=== PATIENT | male | born 1960 | race Caucasian/White ===

== ENCOUNTER → 2017-10-26 07:39 | Outpatient (CLI) | payer OTHER, SELFPAY | PROVIDERS: Family Provider Family Medicine; PCP Family Medicine; Visit Provider Surgery Vascular Surgery | DX: I70.219 Atherosclerosis of native arteries of extremities with intermittent claudication, unspecified extremity (principal); E78.00 Pure hypercholesterolemia, unspecified; Z87.891 Personal history of nicotine dependence | CPT/HCPCS: 93978 ==

== ENCOUNTER → 2019-02-11 07:48 | Outpatient (CLI) | payer OTHER, SELFPAY ==
[2018-07-25 13:20] VITALS: BMI 27.0
--- NOTE | 2019-02-11 07:50 | AAVD_ITS ---
Reason For Study: Aortic atherosclerosis Aorta Measurements Aorta Doppler Measurements Proximal aorta measures1.49 x 1.51cm. in cross- Peak systolic flow velocities within the proximal sectional axis. aorta measure 77.6 cm/sec. Proximal aorta measures1.49cm. in longitudinal Peak systolic flow velocities within the mid aorta axis. measure 66.6 cm/sec. Mid aorta measures1.49 x 1.53cm. in cross- Peak systolic flow velocities within the distal sectional axis. aorta measure 81.8 cm/sec. Mid aorta measures1.50cm. in longitudinal axis. Distal aorta measures1.28 x 1.26cm. in cross- sectional axis. Distal aorta measures1.26cm. in longitudinal axis. Left Iliac Artery Left iliac artery measures 0.85 x 0.85 cm. in the cross-sectional axis. Left iliac artery measures 0.86 cm. in the longitudinal axis. Peak systolic velocity in the left iliac artery measures 112.5 cm/sec. Right Iliac Artery Right iliac artery measures 0.62 x 0.62 cm. in the cross-sectional axis. Right iliac artery measures 0.64 cm. in the longitudinal axis. Peak systolic velocity in the right iliac artery measures 186.3 cm/sec. Procedure Aorta IVC Iliac vasculature or bypass grafts [id number]. Exam performed in department. 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 Ordering Physician: Calvin Burch Referring Physician: Jan Whitt M.D. Performed By: Mabel Sharma RVT
--- NOTE | 2019-02-11 07:51 | ART_ITS ---
Reason For Study: Aortic atherosclerosis Procedure A bilateral lower extremity continuous wave Doppler with analog waveform analysis and ankle brachial indexes. Left Segmental Pressures Left brachial= 135mmHg. Left posterior tibial artery = 165mmHg. Left dorsalis pedis artery = 166mmHg. The left dorsalis pedis waveforms are triphasic. The left posterior tibial artery waveforms are triphasic. Right Segmental Pressures Right brachial= 126mmHg. Right posterior tibial artery = 168mmHg. Right dorsalis pedis artery = 154mmHg. The right dorsalis pedis waveforms are triphasic. The right posterior tibial artery waveforms are triphasic. Indices The right ankle brachial index by the dorsalis pedis is 1.14. The right ankle brachial index by the posterior tibial artery is 1.24. The left ankle brachial index by the dorsalis pedis is 1.23. The left ankle brachial index by the posterior tibial artery is 1.22. Interpretation Summary 1. No significant arterial occlussive disease at rest with KIM 1.24 right and 1.23 left leg with bilateral triphasic flow. Ordering Physician: Calvin Burch Referring Physician: Jan Whitt M.D. Performed By: Mabel Sharma RVT
== END ==
PROVIDERS: Family Provider Family Medicine; PCP Family Medicine; Referring Provider Surgery Vascular Surgery; Visit Provider Surgery Vascular Surgery
DX: I70.0 Atherosclerosis of aorta (principal); I77.1 Stricture of artery; I70.213 Atherosclerosis of native arteries of extremities with intermittent claudication, bilateral legs
CPT/HCPCS: 93922; 93978

== ENCOUNTER → 2020-03-10 11:19 | Outpatient (CLI) | payer OTHER, SELFPAY ==
[2020-03-10 10:55] VITALS: BMI 29.7
[2020-03-10 15:46] LABS: Anion Gap 4 (5-15); BUN 21 mg/dL (7-18); BUN/Creat Ratio 19.6 RATIO (10-20); Calcium,Total 9.8 mg/dL (8.5-10.1); Chloride 103 mmol/L (98-107); Creatinine, Serum 1.07 mg/dL (0.70-1.30); EST Glomerular Filtration Rate 75 mL/min (>60); Est Glom Filt Rate - Afr Amer 91 mL/min (>60); Glucose 235 mg/dL (74-106); PSA,Total- Diagnostic 1.86 ng/mL (0.0-4.0); Potassium 4.3 mmol/L (3.5-5.1); Sodium Level 136 mmol/L (136-145)
== END ==
PROVIDERS: PCP Family Medicine; Visit Provider Family Medicine
DX: I10 Essential (primary) hypertension (principal); Z87.898 Personal history of other specified conditions
CPT/HCPCS: 36415; 80048; 84153

== ENCOUNTER → 2020-03-17 10:41 | Outpatient (CLI) | payer OTHER, SELFPAY ==
[2020-03-17 10:05] VITALS: BMI 29.9
[2020-03-17 12:50] LABS: Hemoglobin A1c 8.4 % (3.8-5.6)
[2020-03-17 12:57] LABS: Glucose 241 mg/dL (74-106)
== END ==
PROVIDERS: PCP Family Medicine; Referring Provider Family Medicine; Visit Provider Family Medicine
DX: R73.09 Other abnormal glucose (principal)
CPT/HCPCS: 36415; 82947; 83036

== ENCOUNTER → 2020-04-06 14:25 | Outpatient (CLI) | payer OTHER, SELFPAY ==
[2020-04-06 14:03] VITALS: BMI 29.5
[2020-04-06 16:16] LABS: Glucose 125 mg/dL (74-106)
== END ==
PROVIDERS: PCP Family Medicine; Referring Provider Family Medicine; Visit Provider Family Medicine
DX: E11.9 Type 2 diabetes mellitus without complications (principal)
CPT/HCPCS: 36415; 82947

== ENCOUNTER → 2020-07-23 07:43 | Outpatient (CLI) | payer OTHER, SELFPAY ==
[2020-07-14 15:10] VITALS: BMI 29.5
--- NOTE | 2020-07-23 07:45 | US_ITS ---
STUDY: ULTRASOUND - URINARY BLADDER REASON FOR EXAM: Male, 60 years old. Urinary frequency TECHNIQUE: Ultrasound evaluation of the urinary bladder was performed with real-time and static olivier-scale imaging. COMPARISON: None. FINDINGS: There is no right UVJ calculus. There is a visualized right ureteral jet. There is no left UVJ calculus. There is a visualized left ureteral jet. The distended volume of the urinary bladder is 279 ml. The empty volume of the urinary bladder is 68 ml. The bladder wall is within normal limits. The bladder wall measures 3. Prostatic enlargement with indentation at the bladder base. The prostate volume measures 24.8 cc. There are no demonstrated bladder calculi. US/Post Void Residual Bladder IMPRESSION: Small postvoid residual. Indentation at the bladder base due to prostatic enlargement. Electronically Signed: Dani Schuster MD at 14:27 EDT , Service support ,
== END ==
PROVIDERS: PCP Family Medicine; Referring Provider Family Medicine; Visit Provider Family Medicine
DX: R35.0 Frequency of micturition (principal)
CPT/HCPCS: 51798

== ENCOUNTER → 2021-08-10 | Outpatient (CLI) | payer OTHER, SELFPAY ==
[2021-08-10 12:45] LABS: AST(SGOT) 12 U/L (15-37); Alanine Aminotransfer ALT/SGPT 36 U/L (16-61); Albumin, Serum 3.8 g/dL (3.2-5.0); Alkaline Phosphatase 69 U/L (45-117); Anion Gap 5 (5-15); BUN 22 mg/dL (7-18); BUN/Creat Ratio 18.5 RATIO (10-20); Calcium,Total 9.6 mg/dL (8.5-10.1); Chloride 106 mmol/L (98-107); Cholesterol 158 mg/dL (200); Creatinine, Serum 1.19 mg/dL (0.70-1.30); EST Glomerular Filtration Rate 66 mL/min (>60); Est Glom Filt Rate - Afr Amer 80 mL/min (>60); Globulin 3.7 g/dL (2.2-4.2); Glucose 200 mg/dL (74-106); High Density Lipoprotein 48 mg/dL; Potassium 4.4 mmol/L (3.5-5.1); Protein, Total 7.5 g/dL (6.4-8.2); Sodium Level 140 mmol/L (136-145); Triglycerides 175 mg/dL; Very Low Density Lipoprotein 35 mg/dL (5-40)
== END | disposition home or self-care (01) ==
LOC: BIMLAB 09:55
PROVIDERS: PCP Family Medicine; Referring Provider Family Medicine; Visit Provider Family Medicine
DX: E11.69 Type 2 diabetes mellitus with other specified complication (principal); E78.5 Hyperlipidemia, unspecified
CPT/HCPCS: 36415; 80053; 80061

== ENCOUNTER → 2022-03-22 | Outpatient (CLI) | payer OTHER, SELFPAY ==
--- NOTE | 2022-03-22 11:45 | RAD_ITS ---
INDICATION: chronic cough EXAMINATION/TECHNIQUE: X-RAY - XR Chest 2 Views COMPARISON: None. FINDINGS: LINES/DEVICES: None. LUNGS: No focal infiltration or pleural effusion. No pneumothorax. MEDIASTINUM AND CARDIOVASCULAR STRUCTURES: Cardiac silhouette not enlarged. Central airways and mediastinal contour are unremarkable. BONES AND SOFT TISSUES: Unremarkable. RAD/Chest PA and Lateral IMPRESSION: No radiographic evidence of acute cardiopulmonary disease. Electronically Signed: Checo Delgado MD at 20:54 EST ,
== END | disposition home or self-care (01) ==
LOC: MTRAD 11:44
PROVIDERS: PCP Family Medicine; Referring Provider Family Medicine; Visit Provider Family Medicine
DX: R05.3 Chronic cough (principal)
CPT/HCPCS: 71046

== ENCOUNTER → 2022-10-04 | Outpatient (CLI) | payer OTHER, SELFPAY ==
[2022-10-04 13:21] LABS: ALB/GLOB Ratio 1.3 RATIO (0.9-2.4); AST(SGOT) 13 U/L (15-37); Alanine Aminotransfer ALT/SGPT 32 U/L (16-61); Albumin, Serum 4.1 g/dL (3.2-5.0); Alkaline Phosphatase 79 U/L (45-117); Anion Gap 5 (5-15); BUN 21 mg/dL (7-18); BUN/Creat Ratio 16.4 RATIO (10-20); Calcium,Total 9.4 mg/dL (8.5-10.1); Chloride 107 mmol/L (98-107); Cholesterol 157 mg/dL (200); Creatinine, Serum 1.28 mg/dL (0.70-1.30); EST Glomerular Filtration Rate 61 mL/min (>60); Est Glom Filt Rate - Afr Amer 73 mL/min (>60); Globulin 3.2 g/dL (2.2-4.2); Glucose 141 mg/dL (74-106); High Density Lipoprotein 50 mg/dL; Potassium 4.6 mmol/L (3.5-5.1); Protein, Total 7.3 g/dL (6.4-8.2); Sodium Level 140 mmol/L (136-145); Triglycerides 243 mg/dL; Very Low Density Lipoprotein 49 mg/dL (5-40)
== END | disposition home or self-care (01) ==
LOC: BIMLAB 11:02
PROVIDERS: PCP Family Medicine; Referring Provider Family Medicine; Visit Provider Family Medicine
DX: E11.69 Type 2 diabetes mellitus with other specified complication (principal); E78.5 Hyperlipidemia, unspecified
CPT/HCPCS: 36415; 80053; 80061

== ENCOUNTER → 2023-04-10 | Outpatient (CLI) | payer OTHER, SELFPAY | END | disposition home or self-care (01) | LOC: SL 09:23 | PROVIDERS: PCP Family Medicine; Referring Provider Family Medicine; Visit Provider Family Medicine | DX: G47.10 Hypersomnia, unspecified (principal) | CPT/HCPCS: 95806 ==

== ENCOUNTER → 2023-05-14 | Outpatient (CLI) | payer OTHER, SELFPAY ==
--- NOTE | 2023-05-14 17:45 | CT_ITS ---
STUDY: LOW DOSE CT LUNG CANCER SCREENING REASON FOR EXAM: Male, 62 years old. smoker 1 pack per day for 36 years. Quit 6 years ago. RADIATION DOSAGE (If Supplied By Facility): CTDIvol = ( 4.02 ) mGy, DLP = ( 149.99 ) mGycm TECHNIQUE: No contrast was administered. Low dose technique was utilized (average mAS-38 and kVp 120). 1.25 mm axial source images with a slice interval of 1.25-mm were reconstructed in lung windows. 1.25 mm coronal sagittal reformats obtained. COMPARISON: Chest radiograph March 22, 2019 NODULES: 1) 2.5 x 2mm pleural-based posterior medial right upper lobe solid nodule versus atelectasis along pleura posterior medial left upper lobe axial image 45 without calcification 2) Questionable 4 x 2 mm (average 3 mm) solid nodule versus vessel central right lower lobe axial image 145 and coronal image 168 without calcification. Parenchyma: Mild apical scarring. No airspace consolidation, effusion, or pneumothorax. Minimal bilateral dependent atelectasis. Endobronchial lesion: No endobronchial lesion. Mild diffuse peribronchial thickening. Aorta: No aortic ectasia or intramural hematoma. Minimal scattered descending aortic atherosclerosis. CORONARY ARTERIES: Coronary artery calcification 3 vessel moderate calcified coronary atherosclerosis. Heart: No cardiomegaly or pericardial effusion. Pulmonary artery: No main pulmonary arterial enlargement. Mediastinal nodes: No mediastinal adenopathy by size criteria. No bulky hilar adenopathy. Other chest and abdominal findings: Unremarkable thyroid. Unremarkable esophagus. No hiatal hernia. Colonic diverticulosis without diverticulitis in the study [id number]. CT/Low Dose CT Lung Screening IMPRESSION: ] No suspicious pulmonary nodules. Small right lung nodules versus atelectasis and vessel which are benign by Lung-RAD criteria. Multivessel moderate coronary atherosclerosis. Lung-RADS category 2 (S - for coronary atheroscerlosis ) - Continue annual screening with LDCT in 12 months. IMPORTANT NOTES FOR USE: ACR Lung-RADS Version 1.1 Assessment Categories Release Date: 2018 Category: Coded 0-4 bases on nodule(s) with highest degree of suspicion. Negative screen is defined as categories 1 and 2; a positive screen is defined as categories 3 and 4. Category 3 and 4A nodules that are unchanged on interval CT should be coded as category 2, and individuals returned to screening in 12 months. Category 4X: Category 3 or 4 nodules with additional imaging findings that increase the suspicion of lung cancer, such as spiculation, GGN that doubles in size in 1 year, enlarged lymph notes, etc. Category Modifiers: S (significant finding unrelated to lung cancer) Electronically Signed: Erwin Gould MD at 9:30 EST ,
== END | disposition home or self-care (01) ==
LOC: CT 17:43
PROVIDERS: PCP Family Medicine; Referring Provider Nurse Practitioner Acute Care; Visit Provider Nurse Practitioner Acute Care
DX: F17.210 Nicotine dependence, cigarettes, uncomplicated (principal)
CPT/HCPCS: 71271

== ENCOUNTER → 2023-12-18 | Outpatient (CLI) | payer OTHER, SELFPAY ==
[2023-12-18 12:50] LABS: ALB/GLOB Ratio 1.1 RATIO (0.9-2.4); AST(SGOT) 15 U/L (15-37); Alanine Aminotransfer ALT/SGPT 35 U/L (16-61); Alkaline Phosphatase 89 U/L (45-117); Anion Gap 6 (5-15); BUN 20 mg/dL (7-18); BUN/Creat Ratio 19.2 RATIO (10-20); Chloride 104 mmol/L (98-107); Cholesterol 170 mg/dL (200); Creatinine, Serum 1.04 mg/dL (0.70-1.30); EST Glomerular Filtration Rate 77 mL/min (>60); Est Glom Filt Rate - Afr Amer 93 mL/min (>60); Globulin 3.8 g/dL (2.2-4.2); Glucose 195 mg/dL (74-106); High Density Lipoprotein 46 mg/dL; PSA,Total- Diagnostic 2.88 ng/mL (0.0-4.0); Potassium 4.8 mmol/L (3.5-5.1); Protein, Total 7.8 g/dL (6.4-8.2); Sodium Level 139 mmol/L (136-145); Triglycerides 196 mg/dL; Very Low Density Lipoprotein 39 mg/dL (5-40)
== END | disposition home or self-care (01) ==
LOC: BIMLAB 08:21
PROVIDERS: PCP Family Medicine; Referring Provider Family Medicine; Visit Provider Family Medicine
DX: E11.9 Type 2 diabetes mellitus without complications (principal); R35.0 Frequency of micturition
CPT/HCPCS: 36415; 80053; 80061; 84153

== ENCOUNTER → 2024-03-17 | Outpatient (CLI) | payer OTHER, SELFPAY | END | disposition home or self-care (01) | LOC: SL 12:15 | PROVIDERS: PCP Family Medicine; Referring Provider Nurse Practitioner Acute Care; Visit Provider Nurse Practitioner Acute Care | DX: Z46.89 Encounter for fitting and adjustment of other specified devices (principal) ==

== ENCOUNTER → 2024-06-24 | Outpatient (CLI) | payer OTHER, SELFPAY ==
--- NOTE | 2024-06-24 14:50 | CT_ITS ---
PROCEDURE: LOW DOSE CT LUNG SCREENING 06/24/2024 REASON FOR EXAM: SMOKING TECHNIQUE: Low Dose CT Lung screening without contrast. Coronal and Sagittal reconstruction series were provided. One or more dose reduction techniques were used (e.g., Automated exposure control, adjustment of the mA and/or kV according to patient size, use of iterative reconstruction technique). REFERENCE LINK: [facility] Lung-RADS RADIATION DOSE SUMMARY: CTDlvol: 3.02 mGy DLP: 109 mGycm COMPARISON: None. FINDINGS: Mild bilateral basilar atelectatic pulmonary changes. No pulmonary nodule or mass lesion is identified. Mild osteopenia of the visualized bones. Mild diffuse spondylosis. Moderate coronary artery calcifications. FINDINGS: Normal unenhanced main pulmonary artery and right and left pulmonary arteries. Normal bilateral peripheral pulmonary arteries. Normal thoracic aorta and visualized great vessels. There is no demonstrated aortic aneurysm. Normal heart and pericardium. Normal mediastinum. Normal hilar regions. Normal visualized trachea and bronchi. The remaining lungs are well expanded. Normal remaining pulmonary parenchyma. Normal pleura. Normal visualized upper abdomen. CT/Low Dose CT Lung Screening IMPRESSION: 1. Moderate coronary artery calcifications. 2. Bilateral basilar atelectatic pulmonary changes. 3. No pulmonary nodule or mass lesion is identified. 4. 5. Lung-RADS Category: 1 NEGATIVE. RECOMMEND 12-MONTH SCREENING LDCT. Reading [facility]
== END | disposition home or self-care (01) ==
LOC: CT 14:49
PROVIDERS: PCP Family Medicine; Referring Provider Nurse Practitioner Acute Care; Visit Provider Nurse Practitioner Acute Care
DX: F17.210 Nicotine dependence, cigarettes, uncomplicated (principal)
CPT/HCPCS: 71271